=== PATIENT | male | born 1970 | race Caucasian/White ===

== ENCOUNTER 2021-05-25 08:17 | Emergency (ER) | payer BC, OTHER ==
[~2021-05-25] VITALS: Ht 177.8 cm; Wt 90.3 kg
[2021-05-25 08:54] VITALS: BP 147/80
[2021-05-25] MEDS ORDERED: LIDOCAINE-MPF 1%, 5ML ONE (09:18)
[2021-05-25] MEDS ORDERED: LIDOCAINE-MPF 1%, 5ML INFIL ONE (09:30)
== END 2021-05-25 10:27 | disposition home or self-care (01) ==
LOC: ED 10:10
DX: S61.210A Laceration without foreign body of right index finger without damage to nail, initial encounter (principal); W23.0XXA Caught, crushed, jammed, or pinched between moving objects, initial encounter; Y93.89 Activity, other specified; Y92.69 Other specified industrial and construction area as the place of occurrence of the external cause; Y99.0 Civilian activity done for income or pay
CPT/HCPCS: 12001; 99282